=== PATIENT | male | born 1960 | race Caucasian/White ===

== ENCOUNTER 2019-03-19 16:09 | Outpatient (REF) | payer MEDICAID, SELFPAY ==
[2019-03-19 22:37] LABS: ALT 37 U/L (16-63); AST 23 U/L (15-37); Alkaline Phosphatase 97 U/L (46-116); Anion Gap 11.3 mmol/L (3-11); BUN 16 mg/dL (7-18); Bilirubin, Total 0.6 mg/dL (0.2-1.0); CO2 26.7 mmol/L (21.0-32.0); CREATININE 0.93 mg/dL (0.70-1.30); Calcium 9.3 mg/dL (8.5-10.1); Chloride 105 mmol/L (98-107); Glucose 81 mg/dL (74-106); Potassium 3.8 mmol/L (3.5-5.1); Sodium 143 mmol/L (136-145)
[2019-03-21 10:23] LABS: Hepatitis C Ab w Rflx HCV PCR Negative (Negative)
[2019-03-23 11:46] LABS: Testosterone, Free 8.63 ng/dL (3.87-14.7); Testosterone, Total 454 ng/dL (240-950)
== END 2019-03-19 16:29 ==
LOC: NCHCN 16:09
PROVIDERS: PCP Nurse Practitioner Community Health; Visit Provider Nurse Practitioner Community Health
DX: I49.9 Cardiac arrhythmia, unspecified (principal); R68.82 Decreased libido; Z11.59 Encounter for screening for other viral diseases
CPT/HCPCS: 80053; 84402; 84403; 86803

== ENCOUNTER 2020-01-31 15:09 | Outpatient (REF) | payer MEDICAID, SELFPAY ==
[2020-02-01 18:51] LABS: LH 2.3 mIU/mL (1.5-9.3)
[2020-02-05 15:11] LABS: Testosterone, Free 10.5 ng/dL (3.87-14.7); Testosterone, Total 524 ng/dL (240-950)
== END 2020-01-31 15:29 ==
LOC: NCHCN 15:09
PROVIDERS: PCP Nurse Practitioner Community Health; Visit Provider Nurse Practitioner Community Health
DX: R68.82 Decreased libido (principal)
CPT/HCPCS: 84402; 84403; 83002

== ENCOUNTER 2020-06-18 18:13 | Outpatient (REF) | payer MEDICAID, SELFPAY ==
[2020-06-18 22:09] LABS: Calculated LDL 71 mg/dL (<100); Cholesterol 187 mg/dL (<200); HDL Cholesterol 61 mg/dL (40-60); Triglyceride 279 mg/dL (<150)
== END 2020-06-18 18:14 | disposition home or self-care (01) ==
LOC: NCHCN 18:13
PROVIDERS: PCP Nurse Practitioner Community Health; Visit Provider Nurse Practitioner Community Health
DX: E78.5 Hyperlipidemia, unspecified (principal)
CPT/HCPCS: 80061

== ENCOUNTER 2020-10-08 14:58 | Outpatient (REF) | payer MEDICAID, SELFPAY ==
[2020-10-08 15:21] LABS: Abs Immature Grans 0.03 10^3/uL (0.0-0.06); Absolute Basophil Count 0.05 10^3/uL (0.0-0.2); Absolute Eosinophil Count 0.24 10^3/uL (0.0-0.7); Absolute Monocyte Count 0.77 10^3/uL (0.1-0.8); Absolute Neutrophil Count 4.24 10^3/uL (1.2-6.7); Basophils % 0.6; Eosinophils % 3.1; HCT 53.8 % (40.0-50.0); HGB 17.1 g/dL (13.5-17.5); Immature Grans % 0.4; MCH 28.8 pg (27.0-33.0); MCHC 31.8 % (32.0-36.0); MCV 90.7 fL (80-95); MPV 9.9 fL (8.0-11.0); Neutrophils % 54.9; Nucleated RBC 0 %; Platelet Count 252 10^3/uL (130-400); RBC 5.93 10^6/uL (4.36-5.78); RDW 12.5 % (11.8-14.1); RDW-SD 41.3 fL; WBC 7.73 10^3/uL (4.4-10.8)
[2020-10-08 15:40] LABS: ALT 30 U/L (16-63); AST 20 U/L (15-37); Albumin 3.9 g/dL (3.4-5.0); Alkaline Phosphatase 114 U/L (46-116); Anion Gap 9.5 mmol/L (3-11); BUN 16 mg/dL (7-18); Bilirubin, Total 0.4 mg/dL (0.2-1.0); CO2 27.5 mmol/L (21.0-32.0); CREATININE 0.9 mg/dL (0.70-1.30); Calcium 9.3 mg/dL (8.5-10.1); Chloride 108 mmol/L (98-107); Glucose 94 mg/dL (74-106); Potassium 4.8 mmol/L (3.5-5.1); Sodium 145 mmol/L (136-145); Total Protein 6.8 g/dL (6.4-8.2)
== END 2020-10-08 14:59 | disposition home or self-care (01) ==
LOC: NCHCN 14:58
PROVIDERS: PCP Nurse Practitioner Community Health; Visit Provider Nurse Practitioner Community Health
DX: R00.2 Palpitations (principal)
CPT/HCPCS: 80053; 84443; 85025

== ENCOUNTER 2021-02-23 22:04 | Outpatient (REF) | payer MEDICAID, SELFPAY ==
[2021-02-23 21:51] LABS: ESR 4 mm/hr (0-20)
[2021-02-23 22:03] LABS: C-Reactive Protein < 0.05 mg/dL (0.0-0.3)
[2021-02-25 15:33] LABS: HLA-B27 Result Negative
== END 2021-02-23 22:05 | disposition home or self-care (01) ==
LOC: NCHCN 22:04
PROVIDERS: PCP Nurse Practitioner Community Health; Visit Provider Nurse Practitioner Community Health
DX: M47.817 Spondylosis without myelopathy or radiculopathy, lumbosacral region (principal); M54.59 Other low back pain; R93.7 Abnormal findings on diagnostic imaging of other parts of musculoskeletal system
CPT/HCPCS: 85652; 86812; 86140

== ENCOUNTER 2022-03-09 10:29 | Outpatient (REF) | payer MEDICAID, SELFPAY ==
[2022-03-09 14:59] LABS: ALT 36 U/L (16-63); AST 29 U/L (15-37); Albumin 3.9 g/dL (3.4-5.0); Alkaline Phosphatase 116 U/L (46-116); Anion Gap 8.9 mmol/L (3-11); BUN 16 mg/dL (7-18); Bilirubin, Total 0.4 mg/dL (0.2-1.0); CO2 27.1 mmol/L (21.0-32.0); Calcium 9.5 mg/dL (8.5-10.1); Calculated LDL 75 mg/dL (<100); Chloride 107 mmol/L (98-107); Cholesterol 174 mg/dL (<200); Estimated GFR 85.63 (mL/min/1.73m2); Glucose 99 mg/dL (74-106); HDL Cholesterol 58 mg/dL (40-60); Potassium 3.9 mmol/L (3.5-5.1); Sodium 143 mmol/L (136-145); Total Protein 7.4 g/dL (6.4-8.2); Triglyceride 208 mg/dL (<150)
[2022-03-09 15:05] LABS: Hemoglobin A1C 5.6 % (<5.7)
== END 2022-03-09 10:30 | disposition home or self-care (01) ==
LOC: NCHCN 10:29
PROVIDERS: PCP Nurse Practitioner Community Health; Visit Provider Nurse Practitioner Family
DX: E78.5 Hyperlipidemia, unspecified (principal); R03.0 Elevated blood-pressure reading, without diagnosis of hypertension; E66.3 Overweight; Z13.1 Encounter for screening for diabetes mellitus
CPT/HCPCS: 80053; 80061; 83036

== ENCOUNTER 2023-05-24 16:07 | Outpatient (REF) | payer MEDICAID, SELFPAY ==
[2023-05-24 20:52] LABS: Anion Gap 9.4 mmol/L (3-11); BUN 17 mg/dL (7-18); CO2 26.6 mmol/L (21.0-32.0); CREATININE 0.9 mg/dL (0.70-1.30); Calcium 9.7 mg/dL (8.5-10.1); Chloride 106 mmol/L (98-107); Estimated GFR 96.57 (mL/min/1.73m2); Glucose 93 mg/dL (74-106); Potassium 4.5 mmol/L (3.5-5.1); Sodium 142 mmol/L (136-145)
== END 2023-05-24 16:08 | disposition home or self-care (01) ==
LOC: NCHCN 16:07
PROVIDERS: PCP Nurse Practitioner Community Health; Visit Provider Family Medicine
DX: I10 Essential (primary) hypertension (principal)
CPT/HCPCS: 80048

== ENCOUNTER 2023-08-26 15:17 | Outpatient (REF) | payer MEDICAID, SELFPAY ==
[2023-08-26 15:48] LABS: FREE T4 1.06 ng/dL (0.76-1.46); TSH 1.53 uIU/Ml (0.36-3.74)
== END 2023-08-26 15:18 | disposition home or self-care (01) ==
LOC: NCHCN 15:17
PROVIDERS: PCP Nurse Practitioner Community Health; Visit Provider Family Medicine
DX: E04.1 Nontoxic single thyroid nodule (principal)
CPT/HCPCS: 84439; 84443

== ENCOUNTER 2024-09-03 15:10 | Outpatient (REF) | payer MEDICAID, SELFPAY ==
[2024-09-03 22:43] LABS: BUN 17 mg/dL (7-18); Calcium 9.5 mg/dL (8.5-10.1); Chloride 106 mmol/L (98-107); Estimated GFR 84.57 (mL/min/1.73m2); Glucose 87 mg/dL (74-106); Potassium 4.4 mmol/L (3.5-5.1); Sodium 141 mmol/L (136-145)
== END 2024-09-03 15:11 | disposition home or self-care (01) ==
LOC: NCHCN 15:10
PROVIDERS: PCP Nurse Practitioner Community Health; Visit Provider Family Medicine
DX: R35.1 Nocturia (principal); I10 Essential (primary) hypertension
CPT/HCPCS: 80048; 84153